=== PATIENT | male | born 1965 | race Two or more races ===

== ENCOUNTER → 2021-04-22 14:50 | Outpatient (CLI) | payer BC, SELFPAY ==
--- NOTE | 2021-04-22 14:56 | XR_ITS ---
PROCEDURE: XR FOOT WT BEARING LT 3V CLINICAL INDICATION: left ankle pain, chronic ulcer COMPARISON: No exams were available for comparison FINDINGS: No fracture or dislocation. No lytic or blastic change. There is normal mineralization. Hammertoe deformity digits 2 through. There is some soft tissue swelling along the medial aspect hindfoot. Small bone island is present involving the talus. Other findings:None. IMPRESSION: No acute finding. Hammertoe deformity Dictated by: Marvin De La Rosa MD 04/22/2021 15:26 Marvin De La Rosa MD in [place] 04/22/2021 15:26
--- NOTE | 2021-04-22 14:56 | XR_ITS ---
PROCEDURE: XR ANKLE WT BEARING LT MIN 3V CLINICAL INDICATION: CMT, open wound, left medial ankle COMPARISON: No exams were available for comparison FINDINGS: Bones: No fracture or dislocation. No lytic or blastic change. There is normal mineralization. Joints: The joint spaces are well-preserved. No significant degenerative/arthritic changes. No erosive changes evident. Other findings:Mild soft tissue swelling along the medial aspect the ankle at the talus area. No bony erosive change. IMPRESSION: Soft tissue swelling medially otherwise negative Dictated by: Marvin De La Rosa MD 04/22/2021 15:25 Marvin De La Rosa MD in [place] 04/22/2021 15:25
== END ==
PROVIDERS: PCP Nurse Practitioner Family; Visit Provider Specialist
DX: G60.0 Hereditary motor and sensory neuropathy (principal); M25.572 Pain in left ankle and joints of left foot
CPT/HCPCS: 73610; 73630